=== PATIENT | female | born 2000 | race Caucasian/White ===

== ENCOUNTER 2020-06-30 09:56 | Emergency (ER) | payer MEDICAID | END 2020-06-30 10:42 | disposition left against medical advice (07) | LOC: ER 09:56 | DX: Z20.828 Contact with and (suspected) exposure to other viral communicable diseases (principal); Z53.21 Procedure and treatment not carried out due to patient leaving prior to being seen by health care provider ==

== ENCOUNTER 2022-11-08 08:38 | Outpatient (CLI) | payer MEDICAID | END 2022-11-08 23:59 | disposition home or self-care (01) | LOC: RAD 08:38 | PROVIDERS: ATTEND Nurse Practitioner Family | DX: R56.9 Unspecified convulsions (principal) | CPT/HCPCS: 95819 ==

== ENCOUNTER 2024-02-13 07:29 | Outpatient (CLI) | payer MEDICAID | END 2024-02-13 23:59 | disposition home or self-care (01) | LOC: RAD 07:29 | PROVIDERS: ATTEND Nurse Practitioner Family | DX: R56.9 Unspecified convulsions (principal); R40.20 Unspecified coma | CPT/HCPCS: 95816 ==